=== PATIENT | female | born 1965 | race Caucasian/White ===

== ENCOUNTER 2016-12-29 19:31 | Observation (INO) | payer MEDICARE ==
--- NOTE | ~2016-12-29 | ST ---
Unit #: [id number] #: [id number] Patient: MONET BIRD [id number] [address] [address] [id number] I MR#: [id number] NAME: MONET BIRD. : 1965 SEX: F STUDY DATE/TIME: 12/30/2016 UNIT: C5B ROOM: 556 STUDY DESCRIPTION: Stress Test Attending Physician: Rian Marti M.D. Primary Care Physician: Teodora Gorman M.D. CARDIOLOGY REPORT EXAM Walking Lexiscan Cardiolite REASON FOR TESTING Chest pain. DESCRIPTION Baseline EKG shows normal sinus rhythm, rate of 67 beats per minute. Nonspecific ST-T wave abnormality. 0.4 mg of Lexiscan was injected per protocol followed by Cardiolite. The patient walked on the treadmill per protocol for walking Lexiscan. During the infusion, the patient did have some mild chest tightness as well as shortness of air and lightheadedness. Her blood pressure was stable. Her chest tightness resolved in the recovery period. There were some worsening of baseline EKG changes but no significant ST-T wave depression. She did, however, have some T wave inversion which was noted during the infusion in the anterior lateral leads. There was no ectopy. These changes returned to baseline abnormalities in the recovery period. The test was stopped secondary to protocol completion. IMPRESSION 1. Nondiagnostic EKG portion of walking Lexiscan Cardiolite. 2. Exaggeration of baseline ST-T wave abnormality noted with some T wave inversion noted during the infusion in the anterolateral leads which returned to baseline abnormalities in the recovery period. 3. Patient did complain of mild chest tightness and shortness of breath as well as lightheadedness during the infusion. Blood pressure was stable throughout. 4. No arrhythmias were noted. 5. Please correlate with nuclear imaging. Dictated by... Monet Blair A.P.R.N. for Shannon Lucas M.D. Unit #: [id number] #: [id number] Patient: MONET BIRD LMW/df TD: 12/30/2016 12:59 JOB #: [id number] CARDIOLOGY REPORT Page 1 of 1 X Monet Blair APRN CARDIOLOGY REPORT
--- NOTE | ~2016-12-29 | HP ---
Unit #: [id number] #: [id number] Patient: LUC BIRD [id number] [address] [place], [place] [address] [id number] I MR#: [id number] NAME: LUC BIRD. ROOM: 55 Age: 51 Sex: F Admission Date: 12/30/2016 : 1965 Attending Physician: Rian Marti M.D. Primary Care Physician: Teodora Gorman M.D. HISTORY AND PHYSICAL CHIEF COMPLAINT Chest pain. HISTORY OF PRESENT ILLNESS A 51-year-old female with diabetes and hypercholesterolemia presents with intermittent chest pain over the last one year. It worsened last night. She had associated diaphoresis, maybe some mild nausea. She could not identify any exacerbating factors or relieving factors. She is currently is pain free. It does not seem to be associated with movement, eating, or bowel movements. PAST MEDICAL HISTORY 1. Diabetes. 2. Hypercholesterolemia. 3. Obstructive sleep apnea, diagnosed 10 years ago at our [facility] office, test results unavailable. 4. Hiatal hernia. HOME MEDICATIONS 1. Metformin. 2. Reglan. 3. Prilosec. 4. Lipitor. ALLERGIES Paxil, morphine, aspirin, amoxicillin (unknown reaction). SOCIAL HISTORY She does not smoke. FAMILY HISTORY Emphysema in a family member who smokes. There is also a fair amount of heart disease in her family consistent with premature coronary artery disease. REVIEW OF SYSTEMS She does have a history of asthma but it is basically nonexisting currently. She does snore. Her weight, she believes, is reduced from 10 years ago. No current chest pain, palpitations, abdominal pain, melena, hematochezia, hematemesis, hematuria, dysuria, focal weakness, paraesthesias, leg pain, swelling, hemoptysis, wheezing, shortness of breath. Further review of systems negative. PHYSICAL EXAMINATION Unit #: [id number] #: [id number] Patient: LUC BIRD GENERAL: Reveals a patient who is in no acute distress on room air. VITAL SIGNS: She is afebrile. Pulse is 68, respiratory rate 18, blood pressure 135/62. She is 5 foot 2 inches, 207 pounds. BMI is 37. HEENT: Pupils equal, round, and reactive to light. Sclerae anicteric. Head: Atraumatic. Mucous membranes moist. Mallampati class IV oropharynx. NECK: Supple. No supraclavicular or cervical adenopathy appreciated. CHEST: Clear. No wheeze, stridor, consolidation. CARDIAC: Reveals a regular rate and rhythm. No pathologic murmur, rub, or gallop. ABDOMEN: Obese, soft, nontender. No hepatomegaly, rebound. EXTREMITIES: Reveal no clubbing, cyanosis, or edema. No calf tenderness. SKIN: Warm and dry without rash or diaphoresis. NEUROLOGIC: Grossly intact without focal muscle or sensory deficits. DIAGNOSTIC STUDIES LABORATORY: BUN is 5, creatinine 0.6, potassium 3.4. I do not see where it was replaced. Cardiac enzymes x2 are negative. INR normal. CBC normal. IMAGING: Chest x-ray is unremarkable. CT scan of the abdomen unremarkable. CARDIOVASCULAR: EKG fairly unremarkable. IMPRESSION 1. Chest pain, somewhat atypical. However, she has multiple risk factors. 2. Obstructive sleep apnea, intolerant to CPAP in the remote past. 3. Diabetes. 4. Hyperlipidemia. 5. Hiatal hernia. 6. History of asthma. PLAN Continue home medications except for metformin in anticipation of possible need for contrast. I will add Mylanta to her proton pump inhibitor. Potassium will be replaced. Cardiology has been consulted and they are considering Cardiolite stress test today. She may need outpatient GI evaluation as per Dr. Gorman. I would suggest reevaluation of her sleep apnea as an outpatient given her multiple co-morbid conditions. Dictated by April Patrick/mila TD: 12/30/2016 10:12 JOB #: [id number] CC: Teodora Gorman M.D. Unit #: [id number] #: [id number] Patient: LUC BIRD HISTORY AND PHYSICAL Page 1 of 1 X Rian Marti MD HISTORY AND PHYSICAL
--- NOTE | ~2016-12-29 | CT2 ---
[facility] A Service of [facility] RADIOLOGY TEXT RESULTS PATIENT: LUC BIRD LOCATION: [facility] 556- : [birth year] UNIT #: [id number] AGE: [address]: Rian Marti MD SEX: F ORDER DR: [id number] [facility] [address] [facility] [place] [facility]. [place], [place] [address] [id number] I MR#: [id number] Acc #: [id number] NAME: LUC BIRD. : 1965 SEX: F STUDY DATE/TIME: 12/29/2016 22:14 UNIT: CEDOF ROOM: 57101 STUDY DESCRIPTION: CT Abd and Pelv W Cont Attending Physician: Rian Marti M.D. Ordering Physician: Florentino Tovar D.O. Primary Care Physician: Teodora Gorman M.D. MEDICAL IMAGING REPORT This report is preliminary unless electronic signature is present EXAM CT abdomen and pelvis 12/29/2016 22:14 INDICATION Left upper abdominal pain radiating to the back for 1 day. TECHNIQUE Axial images were obtained through the abdomen and pelvis following IV contrast administration. Multiplanar reformats were obtained. This CT examination was performed with one or more of the following radiation dose reduction techniques: automatic exposure control, adjustment of mA and/or kV according to patient size, and iterative reconstruction. COMPARISON CT abdomen from 04/04/[address] abdomen and pelvis from 02/14/2012. FINDINGS ABDOMEN: Lung bases are clear. Gallbladder is normal. There is no biliary obstruction. Mild hepatic steatosis is present. The solid organs are otherwise normal. No adenopathy or free fluid. Unopacified GI tract is normal. PELVIS: Urinary bladder is decompressed and not well evaluated. Uterus surgically absent. No free fluid. There is sigmoid diverticulosis, but there is no diverticulitis. The remainder of the GI tract, including the appendix, is normal. There is degenerative disease in the lower lumbar spine. IMPRESSION 1. No acute findings in the abdomen or pelvis 2. Sigmoid diverticulosis without diverticulitis. The rest of the GI tract including the appendix is normal. STS. [facility] A Service of [facility] RADIOLOGY TEXT RESULTS PATIENT: LUC BIRD LOCATION: [facility]6- : 61 UNIT #: [id number] AGE: [address]: Rian Marti MD SEX: F ORDER DR: 3. Mild hepatic steatosis. 4. Hysterectomy. Dictated by... Thong Mike Jr., M.D. THIS IS AN ELECTRONICALLY VERIFIED REPORT Thong Mike Jr., M.D. at 12/30/2016 11:14 AM ANTHONY/jeremiah TD: 12/30/2016 06:03 JOB #: [id number] MEDICAL IMAGING REPORT Page 1 of 1 COPY
--- NOTE | ~2016-12-29 | CR72 ---
[facility] A Service of [facility] RADIOLOGY TEXT RESULTS PATIENT: LUC BIRD LOCATION: [facility] [address] : [birth year] UNIT #: [id number] AGE: [address]: Rian Marti MD SEX: F ORDER DR: [id number] [facility] [address] [place], [place] [address] [id number] E MR#: [id number] Acc #: [id number] NAME: LUC BIRD. : 1965 SEX: F STUDY DATE/TIME: 12/29/2016 19:22 UNIT: HAL ROOM: STUDY DESCRIPTION: CR Chest Single View Portable Attending Physician: Veronica Canales M.D. Ordering Physician: Florentino Tovar D.O. Primary Care Physician: Tedoora Gorman M.D. MEDICAL IMAGING REPORT This report is preliminary unless electronic signature is present EXAM Portable chest, 12/29/2016 HISTORY Left-side chest pain radiating to back and stomach for 2 hours today. FINDINGS AP, supine view of the abdomen shows normal bowel gas pattern. No abnormal masses or calculi are seen. The osseous structures appear normal. No soft tissue abnormality is seen. IMPRESSION Normal KUB. Dictated by... Hector Alicea M.D. THIS IS AN ELECTRONICALLY VERIFIED REPORT Hector Alicea M.D. at 12/30/2016 10:28 AM YOSVANY/joanna TD: 12/29/2016 23:50 JOB #: [id number] MEDICAL IMAGING REPORT Page 1 of 1 COPY
--- NOTE | ~2016-12-29 | EKG ---
PATIENT: LUC BIRD UNIT #: [id number] Ventricular Rate: 74 BPM Atrial Rate: 74 BPM P-R Interval: 128 ms QRS Duration: 84 ms Q-T Interval: 396 ms QTC Calculation(Bezet): 439 ms P [place]: 43 degrees Calculated R [place]: 1 degrees Calculated T [place]: 6 degrees Diagnosis Line: Normal sinus rhythm Diagnosis Line: Normal ECG Diagnosis Line: No previous ECGs available Diagnosis Line: Confirmed by REINA ALEXANDER MD ([id number]) on 12/30/2016 Diagnosis Line: 10:41:46 PM INTERPRETING MD: CATHERINE TYLER
--- NOTE | ~2016-12-29 | DS ---
Unit #: [id number] #: [id number] Patient: LUC BIRD [id number] [address] [place], [place] [address] [id number] I MR#: [id number] NAME: LUC BIRD. ROOM: 55 Age: Sex: F Admission Date: 12/30/2016 : 1965 Discharge Date: 12/30/2016 Attending Physician: Rian Marti M.D. Primary Care Physician: Teodora Gorman M.D. DISCHARGE SUMMARY DISCHARGE DIAGNOSES 1. Atypical chest pain with negative Lexiscan Cardiolite. 2. Diabetes. 3. Hyperlipidemia. 4. Obesity. 5. Obstructive sleep apnea. Diagnosed 10 years ago, intolerant to CPAP. 6. Hiatal hernia. DISCHARGE MEDICATIONS Basically home medications including 1. Metformin 500 mg b.i.d. 2. Lipitor 20 mg daily. 3. Reglan q.i.d. 4. Prilosec 20 mg daily. 5. Cardiology had suggested lisinopril 10 mg at bedtime, but that was not continued, consider reinstitution as an outpatient. FOLLOWUP 1. Follow up with Dr. Gorman in one week for general medical care. 2. Follow up with Dr. Shafer per their direction. 3. Would suggest followup with Dr. Marti for evaluation of sleep apnea. DIET Healthy heart, no concentrated sweets. ACTIVITY No specific restrictions. HOSPITAL COURSE The patient was admitted through the emergency room with atypical chest pain that had been intermittent over the last year, but worsened. Cardiology was consulted. They did a Cardiolite Lexiscan which was negative. The nurse called me to tell me the test results. I told her that cardiology was consulted and they must evaluate the patient prior to discharge to ensure no further testing was needed. While I was on the phone she discussed the case with the cardiology nurse practitioner, who said it was okay to discharge. Overall she was doing well. She was pain free and was okayed by cardiology to go home. Consider outpatient GI evaluation. I also would suggest followup in our office for reevaluation of her sleep apnea, given her multiple comorbid conditions. Dictated by... Unit #: [id number] #: [id number] Patient: BIRDLUC M.D. WOL/gz TD: 12/31/2016 13:34 JOB #: [id number] CC: April Ingram M.D. Stacy R. Trinkle, M.D. DISCHARGE SUMMARY Page 1 of 1 X Rian Marti MD X DISCHARGE SUMMARY
--- NOTE | ~2016-12-29 | TH ---
Unit #: [id number] #: [id number] Patient: LUC BIRD [id number] [address] [address] [id number] I MR#: [id number] NAME: LUC BIRD. : 1965 SEX: F STUDY DATE/TIME: 12/30/2016 UNIT: C5B ROOM: 556 STUDY DESCRIPTION: Attending Physician: Rian Marti M.D. Primary Care Physician: Teodora Gorman M.D. CARDIOLOGY REPORT EXAM Lexiscan Cardiolite stress test, nuclear portion. PROCEDURE Using technetium 99m labeled Cardiolite, rest and stress SPECT images were obtained. Multiple SPECT images were obtained in various views including horizontal and vertical long axis and short axis views of the left ventricle. Images were obtained by gated SPECT method. The patient was administered 10.5 mCi of Cardiolite at rest. The patient was administered 30.2 mCi of Cardiolite after Lexiscan infusion was completed. On the stress images, there is normal perfusion noted. The rest images showed normal perfusion. Comparing rest and stress images, there is no stress-induced ischemia noted. The left ventricular ejection fraction is calculated to be 68%. There is no focal wall motion abnormality seen. CONCLUSION 1. No stress-induced ischemia noted. 2. The left ventricular ejection fraction is calculated to be 68%. 3. There is no focal wall motion abnormality seen. 4. Normal Lexiscan Cardiolite stress test. Dictated by... April Dumas TD: 12/30/2016 16:17 JOB #: [id number] CARDIOLOGY REPORT Page 1 of 1 X Shannon Lucas MD <ELECTRONICALLY SIGNED> 04/12/17 1429 CARDIOLOGY REPORT
--- NOTE | ~2016-12-29 | CO ---
Unit #: [id number] #: [id number] Patient: MONET BIRD [id number] [address] [place], [place] [address] [id number] I MR#: [id number] NAME: MONET BIRD. ROOM: 556 Age: 51 Sex: F Admission Date: 12/30/2016 : 1965 Attending Physician: Rian Marti M.D. Primary Care Physician: Teodora Gorman M.D. CONSULTATION REPORT REASON FOR CONSULTATION Chest pain. HISTORY OF PRESENT ILLNESS This is a pleasant 51-year-old female with a past medical history of diabetes mellitus type 2 and hyperlipidemia, who presented to the emergency room with complaints of chest pain. She reports she has been having chest pains off and on for the last several months, but with recent worsening of pain as of yesterday. The pain is described as aching which was associated with some diaphoresis, but denied any nausea, vomiting, or shortness of breath. At present, she is currently chest pain-free. Initial EKG shows normal sinus rhythm, rate of 74 beats per minute. Initial cardiac enzymes have been negative. The patient really cannot describe any worsening or relieving factors associated with her pain. She denies any radiation of the pain. It is notable she does have risk factors for coronary artery disease which include cla-ugrowjf-emjsjdpua diabetes mellitus, hyperlipidemia, as well as obesity and a strong family history of coronary artery disease in her father as well as her brother. We have been asked to see for the above reasons, again at present she is chest pain-free. She is currently awaiting Lexiscan Cardiolite stress testing. PAST MEDICAL HISTORY 1. Diabetes mellitus, type 2. 2. Hyperlipidemia. 3. Obstructive sleep apnea. 4. Hiatal hernia. 5. Hypertension. PAST SURGICAL HISTORY Hysterectomy. HOME MEDICATIONS Metformin 500 mg p.o. b.i.d., Reglan 10 mg p.o. q.i.d., Prilosec 20 mg p.o. daily, Lipitor 20 mg p.o. daily. ALLERGIES Paxil, aspirin, morphine, and amoxicillin. SOCIAL HISTORY The patient does not smoke. She denies illicit drugs or alcohol. Unit #: [id number] #: [id number] Patient: MONET BIRD FAMILY HISTORY Positive for coronary artery disease in her father, brother, and sister, as well as her brother with premature coronary artery disease and [place] in his 30s. REVIEW OF SYSTEMS Negative except for what was stated in the HPI. PHYSICAL EXAMINATION GENERAL: This is a pleasant 51-year-old female, in no acute distress. VITAL SIGNS: Temperature 98.1, respiratory rate 18 to 20, pulse 60s, blood pressure 122/75, BMI 37. HEENT: Pupils are equal and round. Head is atraumatic and normocephalic. Mucous membranes are moist. NECK: Supple. No thyromegaly. No JVD. Normal carotid upstrokes. No bruits. CHEST: Clear. No adventitious breath sounds. No rales, no rhonchi, no wheezes. CARDIAC: S1, S2. No murmur, gallop, or rub. ABDOMEN: Obese, soft, nontender, nondistended. Positive bowel sounds. EXTREMITIES: No clubbing, cyanosis, or edema. Pulses are palpable. NEUROLOGIC: The patient is awake, alert, and oriented. She moves all extremities equally. She follows commands with ease. DIAGNOSTIC STUDIES LABORATORY RESULTS: Troponins have been negative. Glucose 144, BUN 5, creatinine 0.6, sodium 137, potassium 3.4, chloride 107, CO2 of 20. ALT 45, alkaline phosphatase 117. Total cholesterol 157, triglycerides 288, LDL 56, HDL 43. Coags were normal. D-dimer 273. Hemoglobin 12.9, hematocrit 38.0, WBCs 8.7, platelet count 238. IMAGING STUDIES: Chest x-ray shows no active disease, normal KUB. She also had a CT of the abdomen and pelvis which shows no acute findings in the abdomen or pelvis. Sigmoid diverticulosis without evidence of diverticulitis. Appendix was normal. Mild hepatic steatosis. Hysterectomy. CARDIOVASCULAR STUDIES: EKG shows normal sinus rhythm, 74 beats per minute, QTc interval 439 msec, no acute ischemic changes noted. IMPRESSION 1. Atypical chest pain in left anterior chest. 2. Hxt-dflufwy-kncgmufkr diabetes mellitus. 3. Hyperlipidemia. 4. Obesity with a BMI of 37. 5. Hypertension. 6. Obstructive sleep apnea. PLAN We have been asked to see the patient secondary to chest pain. Her chest pain appears atypical in nature and most likely secondary to costochondritis; however, in light of her strong family history of premature coronary artery disease and the patient's risk factors of hypertension, gup-gvhkcmk-hlziuqvvk diabetes mellitus, hyperlipidemia, and obesity would recommend proceeding with exercise Cardiolite stress test today. We will also add MANUEL inhibitor as the patient is a diabetic. We would recommend weight loss as well as lifestyle dietary modifications in Unit #: [id number] #: [id number] Patient: MONET BIRD Reynold tevinu of her hyperlipidemia and this was explained to the patient. The patient will be kept n.p.o. until after her stress test. Again, we will add lisinopril 10 mg p.o. q.h.s., check fasting lipid panel on blood that was drawn today and she will be scheduled for a walking Lexiscan Cardiolite study today. Further recommendations pending the outcome of her Lexiscan Cardiolite study. If her test is negative, she can be discharged home from a cardiac standpoint. Dictated by... Monet Blair A.P.R.N. for April Ingram/dougie TD: 12/31/2016 00:16 JOB #: [id number] CONSULTATION REPORT Page 1 of 1 X Monet Blair APRN X CONSULTATION REPORT
[~2016-12-29 19:31] MED LIST: ESTRADIOL1 MG; PRILOSEC; REGLAN; ZOCOR
[2016-12-29 19:56] LABS: BASOPHIL# 0.1 X10e3 (0-0.3); BASOPHIL% 1.2 % (0-2.5); EOSINOPHIL# 0.2 X10e3 (0-0.7); HEMOGLOBIN 12.9 gm/dL (12.0-16.0); LYMPHOCYTE# 3.6 X10e3 (1.0-3.5); LYMPHOCYTE% 41.9 % (17.0-45.0); MEAN CELL VOLUME 93.1 FL (83-96); MEAN CORPUSCULAR HEMOGLOBIN 31.5 PG (28-34); MEAN CORPUSCULAR HGB CONC 33.9 g/dL (30-36); MEAN PLATELET VOLUME 8.8 FL (6.5-11.5); MONOCYTE# 0.6 X10e3 (0-1.0); MONOCYTE% 7.2 % (3.0-12.0); NEUTROPHIL# 4.1 X10e3 (1.5-7.1); NEUTROPHIL% 47.7 % (40-75); PLATELET COUNT 238 X10e3 (140-420); RED BLOOD COUNT 4.08 X10e (3.90-5.30); RED CELL DISTRIBUTION WIDTH 13.6 % (11.0-15.5); WHITE BLOOD COUNT 8.7 X10e3 (4.0-10.5)
[2016-12-29 20:01] LABS: DIFF IND NO
[2016-12-29 20:02] LABS: POC - CKMB <1.0 ng/mL (0.0-7.9); POC - TROPONIN <0.05 ng/mL (<=0.05)
[2016-12-29 20:15] LABS: INR 1.1; PARTIAL THROMBOPLASTIN TIME 24.7 SECONDS (23.5-31.3); PROTHROMBIN TIME (PATIENT) 11.1 SECONDS (9.6-11.5)
[2016-12-29 20:34] LABS: ALBUMIN SERUM 3.9 g/dL (3.5-5.0); BILIRUBIN, DIRECT 0.1 mg/dL (0.0-0.2); BILIRUBIN,INDIRECT 0.4 mg/dL (0.0-0.9); BILIRUBIN,TOTAL 0.5 mg/dL (0.2-2.0); BUN/CREATININE RATIO 8.33; CALCIUM SERUM 9.3 mg/dL (8.4-10.2); CREATININE SERUM 0.6 mg/dL (0.6-1.4); GLOM FILT RATE Estimated 104.1 mL/min (>60); POTASSIUM 3.4 mmol/L (3.5-5.1); PROTEIN TOTAL SERUM 6.5 g/dL (6.0-8.3)
[2016-12-29 21:35] LABS: POC - CKMB <1.0 ng/mL (0.0-7.9); POC - TROPONIN <0.05 ng/mL (<=0.05)
[2016-12-29] MEDS ORDERED: METFORMIN HCL500 M3 PO (22:41)
[2016-12-29] MEDS ORDERED: REGLAN10 MG PO (22:43)
[2016-12-29] MEDS ORDERED: PRILOSEC (22:43)
[2016-12-29] MEDS ORDERED: LIPITOR20 MG PO (22:44)
[2016-12-30 04:15] LABS: %MB 2.3 % (0.0-4.0); MB 1.8 ng/ml
[2016-12-30 09:42] LABS: CK TOTAL 58 IU/L (26-140)
[2016-12-30 10:26] LABS: CHOLESTEROL 157 mg/dL (0-200); HDL CHOLESTEROL 43 mg/dL (35-95); LDL CHOLESTEROL 56 mg/dL ([, -130]); LDL/HDL RATIO 1 RATIO (0-4); TRIGLYCERIDES 288 mg/dL (10-160)
== END 2016-12-30 17:26 | disposition home or self-care (01) ==
LOC: CED 19:31 → CEDOF 12-30 00:52 → C5B 12-30 09:52
PROVIDERS: Emergency Medicine; Internal Medicine; Internal Medicine Cardiovascular Disease
DX: R07.89 Other chest pain (principal); E11.9 Type 2 diabetes mellitus without complications; Z79.84 Long term (current) use of oral hypoglycemic drugs; E78.5 Hyperlipidemia, unspecified; I10 Essential (primary) hypertension; K76.0 Fatty (change of) liver, not elsewhere classified; K57.30 Diverticulosis of large intestine without perforation or abscess without bleeding; E66.9 Obesity, unspecified; Z68.37 Body mass index [BMI] 37.0-37.9, adult; G47.33 Obstructive sleep apnea (adult) (pediatric); K44.9 Diaphragmatic hernia without obstruction or gangrene; Z79.899 Other long term (current) drug therapy; Z81.2 Family history of tobacco abuse and dependence; Z82.49 Family history of ischemic heart disease and other diseases of the circulatory system; Z90.710 Acquired absence of both cervix and uterus; Z88.8 Allergy status to other drugs, medicaments and biological substances; Z88.0 Allergy status to penicillin; Z88.5 Allergy status to narcotic agent; Z88.6 Allergy status to analgesic agent
CPT/HCPCS: 36415; 71010; 74177; 78452; 80048; 80061; 80076; 82550; 82553; 82947; 83690; 84484; 85025; 85379; 85610; 85730; 93005; 93017; 96374; 99285; A9500; G0378; J2785; Q9967